=== PATIENT | female | born 2000 | race Caucasian/White ===

== ENCOUNTER 2022-10-09 20:17 | Outpatient (CLI) | payer OTHER, SELFPAY | END 2022-10-09 21:30 | disposition home or self-care (01) | LOC: ANHOBOP 20:28 → ANHLDR 20:30 | PROVIDERS: Visit Provider Advanced Practice Midwife | DX: O36.8190 Decreased fetal movements, unspecified trimester, not applicable or unspecified (principal); Z3A.00 Weeks of gestation of pregnancy not specified | CPT/HCPCS: 59025; 99199 ==

== ENCOUNTER 2022-11-16 01:20 | Inpatient (IN) | payer OTHER, SELFPAY ==
[2022-11-16] VITALS (110 sets, daily range): BP systolic 106–153; BP diastolic 63–116; PULSE 77–143; RESP 18; TEMP 36.3–37.6; O2SAT 96–100; BMI 36.6
[2022-11-16 02:23] LABS: Basophils Percent Auto 0.3 % (0.2-1.2); Eosinophils Percent Auto 0.6 % (0-4.4); Hematocrit 38.6 % (37.0-47.0); Hemoglobin 12.9 g/dL (12.0-15.0); Immature Granulocyte Absolute 0.03 K/mm3 (0.00-0.031); Immature Granulocyte Percent A 0.5 % (0-0.5); Lymphocytes Absolute Auto 2.03 K/mm3 (0.9-3.2); Lymphocytes Percent Auto 30.5 % (18.3-44.2); Mean Corpuscular HGB Conc 33.4 g/dl (32-36); Mean Corpuscular Hemoglobin 28.2 pg (26-34); Mean Corpuscular Volume 84.5 fl (80-100); Mean Platelet Volume 10.8 fl (7.4-10.4); Monocytes Absolute Auto 0.3 K/mm3 (0.1-0.6); Neutrophils Absolute Auto 4.2 K/mm3 (1.3-6.7); Neutrophils Percent Auto 63.1 % (45.5-73.1); Platelet Count Result 161 k/mm3 (150-375); Red Blood Count 4.57 M/mm3 (4.2-5.4); Red Cell Distribution Width 14.6 % (11.5-14.5); White Blood Count 6.7 K/mm3 (4.5-10.0)
[2022-11-16 03:13] LABS: Amphetamine Screen Urine Negative (Negative); Barbiturate Screen Urine Negative (Negative); Benzodiazepines Screen Urine Negative (Negative); Cannabinoid Screen Urine Positive (Negative); Cocaine Screen Urine Negative (Negative); Methadone Screen Urine Negative (Negative); Opiate Screen Urine Negative (Negative); Phencyclidine Screen Urine Negative (Negative)
[2022-11-16] MEDS: LACTATED RINGERS 1,000 ML 125 ML IV CONT ×2 (06:51→10:52)
[2022-11-16] MEDS: OXYTOCIN 30 UNITS/NS 500 ML 30 UNITS/500 ML BAG 6 UNITS IV CONT (06:51)
--- NOTE | 2022-11-16 08:19 | WPDHPUPDATE1 ---
History and Physical Update Update Date/Time: 11/16/22 08:19 Patient is a 22-year-old 1 at 30 weeks gestation presented with spontaneous rupture of membranes. She was observed for a time and then Pitocin was started. She has reassuring heart tones. She has and uncomplicated medical, surgical, obstetric history. History and Physical has been reviewed, including an updated exam of the patient. There are NO changes in the patient's condition. Risks, benefits, and alternatives have been discussed and questions answered. Patient agrees to proceed with procedure.
--- NOTE | 2022-11-16 09:06 | WPDANESEPP ---
Anes - Eval Pre Procedure Procedure: labor epidural Date/Time: 11/16/22 09:06 Preop Diagnosis: labor pain Pre Op Diagnosis: leaking Patient Data Age: 22 Gender: F Height: 1.65 m Weight: 100 kg Last Vital Signs Temp 37.0 C 11/16/22 06:50 Pulse 80 11/16/22 09:00 BP 137/79 11/16/22 09:00 O2 Del Method Room Air 11/16/22 02:14 Allergies Allergy/AdvReac Type Severity Reaction Status Date / Time No Known Allergies Allergy Verified 11/16/22 02:37 Laboratory Tests 11/16/22 11/16/22 11/16/22 02:18 02:19 02:19 WBC 6.7 K/mm3 K/mm3 (4.5-10.0) RBC 4.57 M/mm3 M/mm3 (4.2-5.4) Hgb 12.9 g/dL g/dL (12.0-15.0) Hct 38.6 % % (37.0-47.0) MCV 84.5 fl fl (80-100) MCH 28.2 pg pg (26-34) MCHC 33.4 g/dl g/dl (32-36) RDW 14.6 % H % (11.5-14.5) Plt Count 161 k/mm3 k/mm3 (150-375) MPV 10.8 fl H fl (7.4-10.4) Immature Gran % (Auto) 0.5 % % (0-0.5) Neut % (Auto) 63.1 % % (45.5-73.1) Lymph % (Auto) 30.5 % % (18.3-44.2) [place] % (Auto) 5.0 % % (2.6-8.5) Eos % (Auto) 0.6 % % (0-4.4) Baso % (Auto) 0.3 % % (0.2-1.2) Lymph # (Auto) 2.03 K/mm3 K/mm3 (0.9-3.2) [place] # (Auto) 0.3 K/mm3 K/mm3 (0.1-0.6) Eos # (Auto) 0.0 K/mm3 K/mm3 (0-0.3) Baso # (Auto) 0.0 K/mm3 K/mm3 (0.0-0.1) Abs Immat Gran (auto) 0.03 K/mm3 K/mm3 (0.00-0.031) Absolute Neuts (auto) 4.2 K/mm3 K/mm3 (1.3-6.7) Absolute Nucleated RBC 0.0 K/mm3 K/mm3 (0.0-0.012) Nucleated RBC % 0.0 % % (0.0-0.2) Urine Opiates Screen Urine Methadone Screen Ur Barbiturates Screen Ur Phencyclidine Scrn Ur Amphetamine Screen U Benzodiazepines Scrn Urine Cocaine Screen U Cannabinoids Screen RPR Pending Blood Type O Positive Antibody Screen Negative 11/16/22 02:48 WBC RBC Hgb Hct MCV MCH MCHC RDW Plt Count MPV Immature Gran % (Auto) Neut % (Auto) Lymph % (Auto) [place] % (Auto) Eos % (Auto) Baso % (Auto) Lymph # (Auto) [place] # (Auto) Eos # (Auto) Baso # (Auto) Abs Immat Gran (auto) Absolute Neuts (auto) Absolute Nucleated RBC Nucleated RBC % Urine Opiates Screen Negative (Negative) Urine Methadone Screen Negative (Negative) Ur Barbiturates Screen Negative (Negative) Ur Phencyclidine Scrn Negative (Negative) Ur Amphetamine Screen Negative (Negative) U Benzodiazepines Scrn Negative (Negative) Urine Cocaine Screen Negative (Negative) U Cannabinoids Screen Positive A (Negative) RPR Blood Type Antibody Screen Patient hx anesthesia problems: none Family hx anesthesia problems: none Results Review: All pre-operative results and documents have been reviewed as part of the pre-operative evaluation. [facility] Family History Family History Mother Diverticulitis Grandparent Diverticulitis Social History Social History Smoking status: Never smoker Second hand tobacco smoke exposure: Yes Substance use: current Last use: Jun 2022 Lack of Transportation: No Lack of Food: Never True Current Housing: I Have Housing Concerned About Future Housing: No Difficulty Paying Gas/Electric Bills: No Difficulty Paying for Meds: No Currently Unemployed: No Education: High School Diploma/GED Difficulty w/ Childcare or Family Care: No Spiritual care concerns: No Exam Day of Procedure 11/16/22 09:06 Patient weight
[2022-11-16] MEDS: fentaNYL CITRATE INJ (*CRX) 100 MCG/2 ML VIAL 50 MCG IV PUSH (10:28)
[2022-11-16] MEDS: fentaNYL CITRATE INJ (*CRX) 100 MCG/2 ML VIAL IV PUSH (13:37)
--- NOTE | 2022-11-16 17:34 | WPDOBADMIT ---
Obstetrics - Admit Note Admission Note: record reviewed. No pertinent additions to the history and/or any subsequent changes in the physical findings that are not consistent with the expected course of the were found. [facility] anticipate vaginal delivery Additions to the history and/or subsequent changes in the physical findings follow. None.
--- NOTE | 2022-11-16 17:35 | P.PCNOB_ITS ---
OB - Delivery Note Procedure Delivery date: 11/16/22 Procedure: Delivery augmentation: Pitocin Delivery monitor: External FHT and External Uterine Route of delivery: Laceration Description: None Specimen: No Quantitative Blood Loss (ml): 80 Anesthesia type: Epidural [place] Baby Date of : 11/16/22 Time of : 17:20 Weeks of gestation at delivery: 38 Infant gender: Male Weight (pounds): 6 Weight (ounces): 0 presentation: vertex position: Left Occiput Anterior Placenta delivery description: Manual Removal Cord Vessel Description: 3 Vessels, Nuchal Cord, Loose, Clamped/Cut and Delayed Cord Clamping score one minute: 7 score five minutes: 9 Narrative: mother and baby sin to skin in stable condition
[2022-11-16] MEDS: OXYTOCIN 30 UNITS/NS 500 ML 30 UNITS/500 ML BAG 125 UNITS IV CONT (17:49)
[2022-11-16] MEDS: BENZOCAINE 20% AER SPR (*SP) 56 GM CAN 1 SPRAY TOPICAL (20:05)
[2022-11-16] MEDS: WITCH HAZEL 40 PADS 1 PAD TOPICAL (20:06)
[2022-11-16] MEDS: ACETAMINOPHEN 325 MG TABLET 650 MG PO (21:00)
[2022-11-17 04:00] VITALS: BP 130/86; PULSE 100; RESP 18; TEMP 36.9; O2SAT 98
[2022-11-17] MEDS: IBUPROFEN 600 MG TABLET PO (04:54)
[2022-11-17 05:20] LABS: Hematocrit 40.7 % (37.0-47.0); Hemoglobin 13.8 g/dL (12.0-15.0)
[2022-11-17] MEDS: DOCUSATE SODIUM 100 MG CAPSULE PO (08:08)
--- NOTE | 2022-11-17 08:08 | PM.OBPNVD ---
OB - PN: Subj Subjective Date/time seen: 11/17/22 08:08 Patient comments: no complaints, pain well controlled, incisional pain, tolerating diet and flatus present OB - PN: Obj Data Labs 11/17/22 05:06 Labs: Laboratory Results - last 24 hr 11/17/22 05:06 Hgb 13.8 Hct 40.7 OB - PN A/P Plan day: 1 Plan: routine care Comments: No problems, routine care Time Spent With Patient Time: Total time spent is greater than 50% in coordination of care (as documented) at patient's floor/unit and/or counseling patient: Exam Const: General: comfortable, no acute distress and alert Resp: Effort & Inspection: normal respiratory effort Auscultation: no crackles, no rales and no rhonchi Cardio: Rate: regular rate Heart sounds: no click, no murmurs and no rubs GI: Inspection: non-distended GI Palp: No Tenderness to palpation present (GI) Auscultation: normal bowel sounds Other: Incision - CDI Extrem: General: normal to inspection, no pedal edema and no calf tenderness
[2022-11-17 08:10] VITALS: BP 117/68; PULSE 99; RESP 16; TEMP 36.8; O2SAT 99
[2022-11-17 12:07] VITALS: BP 132/79; PULSE 95; RESP 16; TEMP 36.8; O2SAT 100
--- NOTE | 2022-11-17 16:46 | WPDANLDPN2 ---
Anes-Prog Note L&D Date/Time: 11/17/22 16:46 Comfortable throughout: labor and delivery Neuraxial method: epidural Epidural/Spinal procedure site: clean & non-tender (mild bruising. normal tenderness. ) Neuro status: Neuro function grossly intact. Cardiovascular status: normal Respiratory status: normal Airway patency: baseline Mental status: baseline Post-Op hydration status: normal Vital Signs: Last Vital Signs Temp 36.8 C 11/17/22 12:07 Pulse 95 11/17/22 12:07 Resp 16 11/17/22 12:07 BP 132/79 11/17/22 12:07 Pulse Ox 100 11/17/22 12:07 O2 Del Method Room Air 11/17/22 12:07 Pain score (VAS): no pain. patient ambulating well I/O: Intake & Output 11/17/22 11/17/22 11/17/22 07:59 15:59 23:59 Intake Total 740 Balance 740 Patient feedback: Patient satisfied with anesthetic care.
[2022-11-17 17:00] VITALS: BP 140/89; PULSE 91; RESP 18; TEMP 36.7; O2SAT 100
[2022-11-17 19:53] VITALS: BP 125/82; PULSE 98; RESP 16; TEMP 36.8; O2SAT 99
--- NOTE | 2022-11-18 07:52 | PM.OBPNVD ---
OB - PN: Subj Subjective Date/time seen: 11/18/22 07:52 Patient comments: no complaints baby status: doing well OB - PN: Obj Data Labs 11/17/22 05:06 OB - PN A/P Plan day: 2 Plan: routine care and discharge home (F/U in 4 weeks) Time Spent With Patient Time: Total time spent is greater than 50% in coordination of care (as documented) at patient's floor/unit and/or counseling patient: Time with patient: less than 15 minutes Review of Systems Review of Systems: All systems reviewed & are unremarkable except as noted in HPI and below Exam Narrative: Fundus firm and vaginal flow controlled. No lower ext redness, warmth, or edema. Negative homans. Const: General: comfortable Chest: Breast/axilla inspection: normal inspection of the breasts Resp: Effort & Inspection: normal respiratory effort Cardio: Rate: regular rate GI: GI Palp: Yes Soft to palpation Psych: Appearance: grossly normal Affect: normal affect Attitude: cooperative Thought content: Yes Normal thought content present Judgement: Good judgement present (Psych)
--- NOTE | 2022-11-18 07:53 | PM.OBDSVD ---
DS: Admitting Diagnosis Discharge Date 11/18/22 Admitting Diagnosis Labor OB - DS: Summary OB Procedures : None OB Procedures Intrapartum: Spontaneous Vag Delivery OB Procedures: : None Time Spent with Patient Time attestation: Total time spent providing and/or coordinating discharge services: Discharge Plan Discharge Attending physician on discharge: Lawanda Martinez Discharging Clinician: Yajaira Guillen Patient Disposition: Home, Self-Care Activity: pelvic rest Diet: as tolerated Patient Instructions: Antibiotic Form Stand Alone Forms: General Discharge Information Follow-up/Referrals: Lawanda Martienz CNM [Certified Nurse State Wildlife Officer] - Date of admission: 11/16/22 01:20 Primary Care Provider: PHYSICIAN,SUPERVISOR [facility] Admitting Provider: Elsa Hobson Attending physician on admission: Elsa Hobson Condition: Stable
[2022-11-18 09:15] VITALS: BP 125/83; PULSE 90; RESP 16; RESP 20; TEMP 36.6; O2SAT 100
[2022-11-18] MEDS: BENZOCAINE 20% AER SPR (*SP) 56 GM CAN 1 SPRAY TOPICAL (09:30)
[2022-11-18] MEDS: ACETAMINOPHEN 325 MG TABLET 650 MG PO (09:30)
[2022-11-18] MEDS: MULTIVIT/MIN/PREN/FOL AC/IRON TABLET 1 TAB PO (09:30)
--- NOTE | 2022-11-18 09:39 | PC.NURSE ---
Patient viewed the discharge video Mother & Baby Care, The First Two Weeks . Patient was given the opportunity and encouraged to ask questions. Patient verbalized understanding of information shared and has been given the mother/baby guide for home reference.
[2022-11-18 10:11] LABS: Rapid Plasma Reagin Non-Reactive (NonReactive)
[2022-11-19 11:33] VITALS: BP 122/80; PULSE 92; RESP 18; TEMP 37.2; O2SAT 99
== END 2022-11-18 11:35 | disposition home or self-care (01) | DRG 806 ==
LOC: ANHLDR 02:39 → ANHOB2 20:32
PROVIDERS: Advanced Practice Midwife; Admitting Provider Obstetrics & Gynecology; Visit Provider Obstetrics & Gynecology
DX: O69.81X0 Labor and delivery complicated by cord around neck, without compression, not applicable or unspecified (principal); O99.324 Drug use complicating childbirth; Z37.0 Single live birth; O43.113 Circumvallate placenta, third trimester; Z3A.38 38 weeks gestation of pregnancy; F12.90 Cannabis use, unspecified, uncomplicated
CPT/HCPCS: 36415; 80307; 84112; 85014; 85018; 85025; 86592; 86850; 86900; 86901; A9270; J2590; J2795; J3010; J7120

== ENCOUNTER 2023-03-09 09:24 | Emergency (ER) | payer OTHER, SELFPAY ==
--- NOTE | 2023-03-09 09:35 | ED.SKABFB ---
HPI - Skin/Abscess/Foreign Bdy General Chief complaint: Skin/Abscess/Foreign Body Stated complaint: Insect Bite Upper Rt Arm Time Seen by Provider: 03/09/23 09:40 Source: patient Mode of arrival: ambulatory Limitations: no limitations History of Present Illness HPI narrative: Rosales is a 22-year-old female patient presenting to the clinic today with complaints of a spider bite to her right upper arm/axilla. States that she saw a spider bite her yesterday. Reports that was a small yellowish brown spider. Has pain and swelling with some erythema to the right upper anterior arm near the axilla. She denies any fever or chills. Related Data Home Medications Medication Instructions Recorded Confirmed spironolactone 50 mg tablet 50 mg PO DAILY 03/09/23 03/09/23 Allergies Allergy/AdvReac Type Severity Reaction Status Date / Time No Known Allergies Allergy Verified 11/16/22 02:37 Review of Systems Review of Systems: Pertinent positives per HPI. Patient denies any fever, chills, rash, headache, visual changes, dizziness, cough, runny nose, sore throat, shortness of breath, chest pain, palpitations, nausea, vomiting, diarrhea, constipation, abdominal pain, or any urinary issues. PMFSH Family History Family History Mother Diverticulitis Grandparent Diverticulitis Social History Social History Smoking status: Never smoker Second hand tobacco smoke exposure: Yes Substance use: current Last use: Jun 2022 Lack of Transportation: No Lack of Food: Never True Current Housing: I Have Housing Concerned About Future Housing: No Difficulty Paying Gas/Electric Bills: No Difficulty Paying for Meds: No Currently Unemployed: No Education: High School Diploma/GED Difficulty w/ Childcare or Family Care: No Spiritual care concerns: No Comments At the time of my signature, I reviewed and agree with the nursing past medical, surgical, social, and family history. There is no relevant family history pertinent to the patient complaint. Exam Narrative: General: Well-developed, well nourished, in no apparent distress Head: Normocephalic, atraumatic. Cardio: Regular rate and rhythm, s1 and s2 normal, no murmur appreciated. Resp: Clear to auscultation bilaterally, no rhonchi, rales, wheezing or rubs. Integumentary: [place], warm, and dry, insect bite to the right anterior upper arm near the axilla with lymph node swelling in the axilla. Area is indurated and is approximately the size of a baseball. Redness, erythema, and tenderness to palpation noted Course Course Emergency Course: Portions of this record may have been created with voice recognition software. Level of Care: Express Care Visit Vital Signs Vital signs: Vital Signs Temperature 36.7 C 03/09/23 09:36 Pulse Rate 90 03/09/23 09:36 Respiratory Rate 18 03/09/23 09:36 Blood Pressure 112/91 H 03/09/23 09:36 Pulse Oximetry 100 03/09/23 09:36 Oxygen Delivery Room Air 03/09/23 09:36 Temperature 36.7 C 03/09/23 09:36 Pulse Rate 90 03/09/23 09:36 Respiratory Rate 18 03/09/23 09:36 Blood Pressure 112/91 H 03/09/23 09:36 Pulse Oximetry 100 03/09/23 09:36 Oxygen Delivery Room Air 03/09/23 09:36 Vital signs reviewed MDM - Skin/Abscess/Foreign Bdy MDM Narrative Medical decision making narrative: At the time of visit patient is resting on the exam table. She has an infected spider bite to the right anterior upper arm near the axilla with lymph node swelling in the left axilla. Prescription for doxycycline was sent to the pharmacy and supportive measures were discussed with the patient she voiced understanding of discharge instructions and agrees to treatment plan. Differential Diagnosis Differential diagnosis: Likely abscess of skin or subcutaneous tissue, cellulitis and ins
[2023-03-09 09:36] VITALS: BP 112/91; PULSE 90; RESP 18; TEMP 36.7; O2SAT 100
== END 2023-03-09 09:45 | disposition home or self-care (01) ==
PROVIDERS: Emergency Provider Nurse Practitioner Family
DX: S40.861A Insect bite (nonvenomous) of right upper arm, initial encounter (principal); L08.9 Local infection of the skin and subcutaneous tissue, unspecified; W57.XXXA Bitten or stung by nonvenomous insect and other nonvenomous arthropods, initial encounter
CPT/HCPCS: 99213; G0463